=== PATIENT | female | born 1965 | race Caucasian/White ===

== ENCOUNTER 2017-10-03 05:34 | Day surgery (SDC) | payer BC, OTHER ==
[~2017-10-03] VITALS: Ht 165.1 cm; Wt 76.6 kg
[~2017-10-03 05:34] MED LIST: NORE5TAB PO; [UNRECOGNIZED DRUG - OTHER] PO
[2017-10-03] MEDS ORDERED: LACTATED RINGERS 1,000 ML IV SCH (06:12)
[2017-10-03 06:15] LABS: HCG UR LOT HCG706132
[2017-10-03 06:24] LABS: HCG UR OBC PASS
[2017-10-03 06:35] VITALS: BP 123/81
[2017-10-03] MEDS ORDERED: MIDAZOLAM 1 MG/ML, 2ML ONE (07:10)
[2017-10-03] MEDS ORDERED: FENTANYL PF 100 MCG/2ML ONE (07:10)
[2017-10-03] MEDS ORDERED: SILVER NITRATE STICK TP ONE (07:12)
[2017-10-03] MEDS ORDERED: BUPIVACAINE/PF 0.25% ONE (07:12)
[2017-10-03] MEDS ORDERED: KETOROLAC 30 MG/1 ML ONE (07:30)
[2017-10-03] MEDS ORDERED: ACETAMINOPHEN 325 MG TABLET PO PRN (08:00)
[2017-10-03] MEDS ORDERED: OXYcodone 5 MG/5 ML ORAL.SOL UDC PO PRN (08:00)
[2017-10-03] MEDS ORDERED: ALBUTEROL SULFATE 2.5 MG/3 ML NPPB PRN (08:00)
[2017-10-03] MEDS ORDERED: METOPROLOL 1 MG/ML, 5ML IV PRN (08:00)
[2017-10-03] MEDS ORDERED: ONDANSETRON 2MG/ML, 2ML IVPush PRN (08:00)
[2017-10-03] MEDS ORDERED: HYDROmorphone 1 MG/ML, 1ML IV PRN (08:00)
[2017-10-03] MEDS ORDERED: EPHEDRINE 50 MG/ML, 1ML IVPush PRN (08:00)
[2017-10-03] MEDS ORDERED: DIAZEPAM 5 MG/ML, 2ML IVPush PRN (08:00)
[2017-10-03] MEDS ORDERED: FENTANYL PF 100 MCG/2ML IV PRN (08:00)
[2017-10-03] MEDS ORDERED: LABETALOL 5MG/ML, 20ML IV PRN (08:00)
[2017-10-03] MEDS ORDERED: MIDAZOLAM 1 MG/ML, 2ML IV PRN (08:00)
[2017-10-03] MEDS ORDERED: HYDROcodone/APAP 7.5-325MG/15ML UDC PO PRN (08:00)
[2017-10-03] MEDS ORDERED: MEPERIDINE/PF 25MG/0.5ML IVPush PRN (08:00)
[2017-10-03] MEDS ORDERED: PROMETHAZINE 25 MG/ML, 1ML IV PRN (08:00)
[2017-10-03] MEDS ORDERED: hydrALAzine 20 MG/ML, 1ML IV PRN (08:00)
[2017-10-03] MEDS ORDERED: ONDANSETRON 2MG/ML, 2ML ONE (08:20)
[2017-10-03] MEDS ORDERED: DEXAMETHASONE 4 MG/ML, 1ML ONE (08:20)
[2017-10-03] MEDS ORDERED: PROPOFOL 10 MG/ML, 20ML ONE (08:20)
[2017-10-03] MEDS ORDERED: CEFAZOLIN 1,000 MG ONE (08:20)
[2017-10-03] MEDS ORDERED: ACETAMINOPHEN 650 MG/20.3 ML UDC ONE (08:28)
[2017-10-03] MEDS ORDERED: OXYcodone/APAP 5/325MG TABLET ONE (09:58)
[2017-10-03] MEDS ORDERED: OXYcodone/APAP 5/325MG TABLET PO PRN (10:00)
== END 2017-10-03 10:40 ==
LOC: OUT 05:34
PROVIDERS: ATTEND Obstetrics & Gynecology
DX: N93.9 Abnormal uterine and vaginal bleeding, unspecified (principal); N92.0 Excessive and frequent menstruation with regular cycle; I10 Essential (primary) hypertension; Z90.721 Acquired absence of ovaries, unilateral; Z98.51 Tubal ligation status; Z98.890 Other specified postprocedural states
CPT/HCPCS: 58563; 81025; 88305; J0690; J1100; J1885; J2250; J2405; J2704; J3010; J3490; J7120